=== PATIENT | female | born 1995 | race African-American/Black ===

== ENCOUNTER 2017-12-05 04:13 | Observation (INO) | payer MEDICAID ==
[~2017-12-05] VITALS: Ht 160 cm; Wt 81.6 kg
[2017-12-05] MEDS ORDERED: PNV1TABL76 MT (05:02)
[2017-12-05] MEDS ORDERED: LACTATED RINGERS 1,000 ML IV SCH (05:15)
[2017-12-05 05:24] LABS: CLARITY URINE CLEAR (CLEAR); COLOR URINE YELLOW (YELLOW); KETONES URINE NEGATIVE (NEGATIVE); LEUKOCYTE ESTERASE URINE 1+ (NEGATIVE); NITRITE URINE NEGATIVE (NEGATIVE); OCCULT BLOOD URINE NEGATIVE (NEGATIVE); PH URINE 5.5 (4.5-8.0); PROTEIN URINE NEGATIVE (NEGATIVE); SPECIFIC GRAVITY URINE 1.025 (1.005-1.030); UROBILINOGEN URINE 0.2 E.U./dL (0.2-1.0)
[2017-12-05] MEDS ORDERED: CEFAZOLIN 1000MG PREMIX 50 ML IV SCH (06:30)
== END 2017-12-05 07:00 | disposition home or self-care (01) ==
LOC: L&D 04:43
PROVIDERS: ADMIT Obstetrics & Gynecology; ATTEND Obstetrics & Gynecology
DX: O62.9 Abnormality of forces of labor, unspecified (principal); Z3A.31 31 weeks gestation of pregnancy
CPT/HCPCS: 81003; 96361; 96374; 99281; G0378; J0690; J7120; 96360; 96365

== ENCOUNTER 2024-07-07 14:28 | Emergency (ER) | payer SELFPAY ==
[~2024-07-07] VITALS: Ht 162.6 cm; Wt 60.0 kg
[~2024-07-07 14:28] MED LIST: PNV1TABL76 MT
[2024-07-07 14:47] VITALS: O2SAT 98
[2024-07-07] MEDS: KETOROLAC 30MG/ML VIAL IM ONE (15:15)
[2024-07-07] MEDS ORDERED: AMOX-494 MT (17:40)
[2024-07-07 17:45] VITALS: BP 118/70; PULSE 66; RESP 14; TEMP 37.05852; O2SAT 99
== END 2024-07-07 17:47 | disposition home or self-care (01) ==
LOC: ER 14:28
DX: J06.9 Acute upper respiratory infection, unspecified (principal); I88.9 Nonspecific lymphadenitis, unspecified
CPT/HCPCS: 99283; 87430; 87070; 96372; J1885